=== PATIENT | male | born 1990 | race Caucasian/White ===

== ENCOUNTER 2016-09-26 03:14 | Emergency (ER) | payer BC ==
[~2016-09-26] VITALS: Ht 157.5 cm; Wt 75.4 kg
[2016-09-26] MEDS ORDERED: HYDROcodone/APAP 5/325 TABLET ONE (05:17)
[2016-09-26 05:20] VITALS: BP 118/80
[2016-09-26] MEDS ORDERED: HYDROcodone/APAP 5/325 TABLET PO ONE (05:30)
== END 2016-09-26 05:41 | disposition home or self-care (01) ==
LOC: ED 05:35
DX: S20.212A Contusion of left front wall of thorax, initial encounter (principal); S30.1XXA Contusion of abdominal wall, initial encounter; W22.8XXA Striking against or struck by other objects, initial encounter; Y93.64 Activity, baseball; Y92.328 Other athletic field as the place of occurrence of the external cause; Y99.8 Other external cause status
CPT/HCPCS: 71020; 81003; 99285